=== PATIENT | male | born 1985 | race Caucasian/White ===

== ENCOUNTER 2019-06-25 00:37 | Emergency (ER) | payer SELFPAY ==
[~2019-06-25] VITALS: Ht 170.2 cm; Wt 65.8 kg
--- NOTE | 2019-06-25 02:11 | Diagnostic Imaging Report ---
History:Jaw injury Comparison studies: None Technique: Axial images were obtained through the maxillofacial region. Coronal and sagittal images reconstructed from the axial data. Intravenous contrast: None Dose modulation, iterative reconstruction, and/or weight based adjustment of the mA/kV was utilized to reduce the radiation dose to as low as reasonably achievable. Findings: Soft tissues: No abnormalities. Bones: No fractures or bone abnormalities. Orbits: Globes: Intact Extra or intraconal abnormalities: None. Paranasal sinuses: Mild disc IMPRESSION: 1. No acute abnormality. Signed by: DR Michael Miranda M.D. on 06/25/2019 2:08 AM
[2019-06-25] MEDS ORDERED: TETANUS/DIPHTHERIA TOX ADULT 0.5 ML SYR IM ONE (02:30)
[2019-06-25] MEDS ORDERED: LIDOCAINE 1% W/EPINEPHRINE 20 ML VIAL INJ ONE (02:30)
== END 2019-06-25 03:20 | disposition home or self-care (01) ==
LOC: ER 00:37
DX: S01.81XA Laceration without foreign body of other part of head, initial encounter (principal); Y04.0XXA Assault by unarmed brawl or fight, initial encounter; Y92.511 Restaurant or cafe as the place of occurrence of the external cause; F17.200 Nicotine dependence, unspecified, uncomplicated; Z23 Encounter for immunization
CPT/HCPCS: 70486; 90471; 90714; 99283